=== PATIENT | female | born 1980 | race Caucasian/White ===

== ENCOUNTER → 2019-08-23 | Outpatient (CLI) | payer OTHER ==
[~2019-08-23] MED LIST: BARIUM SULFATE 0.1% 450 ML SUSP PO ONE; IOHEXOL 300 MG/ML 75 ML VIAL. IV ONE
--- NOTE | 2019-08-23 16:04 | RAD ---
CT scan abdomen and pelvis without and with contrast 08/23/2019 CLINICAL HISTORY: Abnormal small bowel. TECHNIQUE: After the oral administration of Volumen, unenhanced, contiguous, 5 mm axial sections were obtained abdomen and pelvis. After the intravenous administration of 75 cc of Omnipaque 3:15, contiguous, 0.625 mm axial sections were obtained through the abdomen and pelvis. 5 mm reconstructed sagittal, axial and coronal images were obtained. One or more of the following individualized dose reduction techniques were utilized for this study: 1. Automated exposure control. 2. Adjustment of the mA and/or kV according to patient size. 3. Use of iterative reconstruction technique. FINDINGS: No previous imaging studies are available for comparison. Images through the lung bases demonstrate minimal dependent subsegmental atelectasis bilaterally. The unenhanced CT images demonstrate no renal or ureteral calculus. A pill cam is seen within the mid/distal ileum. On the postcontrast images the liver, spleen, pancreas, adrenal glands and kidneys are within normal limits. The abdominal aorta tapers normally. The gallbladder is contracted. No free fluid or free air is seen within the abdomen. Air and stool are seen throughout the colon. Diastases of the anterior abdominal wall at the level of the umbilicus is seen. The enterography images demonstrate the cecum ro extend across the midline within the left lower quadrant of the abdomen/pelvis. The appendix is well-visualized and is within normal limits. The ileocecal valve is anterior and to the left of midline. Dilated fluid and air-filled mid/distal ileal loops are seen within the right abdomen. A focal area of wall thickening with narrowing of the lumen is seen which measures 1.5 cm in length. The more distal ileum is normal in caliber. These findings are consistent with a stricture. The pill cam is proximal to this stricture within the dilated ileum. The duodenum and jejunum are within normal limits. Images through the pelvis demonstrate the urinary bladder distended with urine. Punctate calcifications within the right pelvis. A 2.7 cm collapsing follicle is seen involving the left ovary. A small amount of free fluid is seen within the pelvis. Very mild S-shaped curvature of the thoracolumbar spine is seen. IMPRESSION: Focal area of wall thickening with apparent stricture formation which measures 1.5 cm in length is seen involving the mid/distal ileum. The ileum proximal to this is dilated. The patient's pill cam is within this dilated segment of ileum proximal to this stricture. Electronically signed by: Toribio Aden MD (08/23/2019 4:02 PM) [facility] – [place]
== END | disposition home or self-care (01) ==
LOC: CT 08:36
PROVIDERS: ATTEND Internal Medicine Gastroenterology
DX: K82.0 Obstruction of gallbladder (principal); J98.11 Atelectasis
CPT/HCPCS: 74170; Q9967

== ENCOUNTER → 2019-09-05 | Outpatient (CLI) | payer OTHER ==
--- NOTE | 2019-09-05 14:51 | RAD ---
Examination: KUB History: Colonoscopy camera location assessment Comparison/Correlation: 08/23/2019 CT enterography exam Findings: Frontal views of the abdomen were obtained. At the left upper quadrant, there is a radiopaque density corresponding to the patient's known colonoscopy camera. It is at the expected site of the distal transverse colon in the left upper quadrant. Moderate plantar distal colon otherwise is seen. Bony structures unremarkable. No significant retention of stool in the colon. No bowel obstruction. Impression: Colonoscopy camera has progressed to the distal transverse colon region since the prior CT exam. Electronically signed by: Sergio Kaiser MD (09/05/2019 2:48 PM) [id number]
== END ==
LOC: DXRAD 14:20
PROVIDERS: ATTEND Surgery
DX: K56.609 Unspecified intestinal obstruction, unspecified as to partial versus complete obstruction (principal)
CPT/HCPCS: 74018